=== PATIENT | female | born 1975 | race African-American/Black ===

== ENCOUNTER 2019-06-04 12:48 | Inpatient (IN) | payer OTHER ==
--- NOTE | 2019-06-04 13:28 | BHS.RME ---
Substance Use & Tx History - Substance Use History Alcohol Substance amount: 8 beers or 2 pints vodka Frequency of use: Daily Substance route: Oral Date of Last Use: 06/04/19 (9 am) Cocaine (Powder) Substance amount: 2 gram Frequency of use: Less than 3 times per week Substance route: Inhalation (ex: sniffing or snorting) Date of Last Use: 06/04/19 (9am) Nicotine Substance amount: 1/2 pack Frequency of use: Daily Substance route: Smoking Date of Last Use: 06/04/19 Physical/Psych/Mental Status - Behavior General Behavior: Increased activity (restlessness, agitation) Eye Contact: Normal - Cooperativeness Cooperativeness: Cooperative - Thinking Thought Processes: Tight, Logical, Goal Directed Thought content: Future oriented - Physical Health Problems Is patient presently having any pain?: No Does patient presently have any injuries (include location): No Does patient currently have a fever: No Is patient : No CIWA Nausea/Vomitin-No Nausea/No Vomiting Muscle Tremors: None Anxiety: 3 Agitation: 4-Moderately Restless Paroxysmal Sweats: No Perspiration Orientation: 2-Disoriented Date<2 days Tacttile Disturbances: 0-None Auditory Disturbances: 0-None Visual Disturbances: 0-None Headache: 0-None Present (not yet in withdrawals due to drinking early this morning 9AM) CIWA-Ar Total Score: 9
[2019-06-04 15:23] VITALS: BMI 27.7
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
[2019-06-04] MEDS ORDERED: ACETAMINOPHEN 325 MG TABLET (FP) PO PRN ×2 (15:47)
[2019-06-04] MEDS ORDERED: BISMUTH SUBSALICYLATE 524 MG/30 ML UD PO PRN (15:47)
[2019-06-04] MEDS ORDERED: MAGNESIUM HYDROX 2400MG/30ML ORAL SUSPENSION 30 ML CUP PO PRN (15:47)
[2019-06-04] MEDS ORDERED: ONDANSETRON *ODT* 4 MG TABLET SL ONE (15:47)
[2019-06-04] MEDS ORDERED: MENTHOL/PHENOL 1 EACH UD MM PRN (15:47)
[2019-06-04] MEDS ORDERED: NICOTINE POLACRILEX 2 MG GUM BUC PRN (15:47)
[2019-06-04] MEDS ORDERED: MAG HYDROX/AL HYDROX/SIMETH 30 ML UNIT-DOSE CUP PO PRN (15:47)
[2019-06-04] MEDS ORDERED: MAGNESIUM CITRATE 300 ML BOTTLE PO PRN (15:47)
[2019-06-04] MEDS ORDERED: chlordiazePOXIDE HCL 25 MG CAPSULE PO PRN (15:47)
--- NOTE | 2019-06-04 16:42 | PN ---
S Progress Note Note: Patient w/ hx uncontrolled HTN and hx cocaine use. Denies chest pain or SOB. No pedal edema. Discussed abnormal EKG reviewed w/ patient and association w/ current medical hx. Encouraged compliance w/ HTN meds and cessation of cocaine. Encouraged to obtain copy of EKG and labs and share w/ PCP upon discharge. Plan: Repeat EKG in 2 days.
[2019-06-04] MEDS: chlordiazePOXIDE HCL 25 MG CAPSULE PO SCH ×2 (17:10→22:08)
[2019-06-04] MEDS: NICOTINE 14 MG/24 HOURS TOPICAL PATCH TD SCH (17:22)
[2019-06-04] MEDS ORDERED: cloNIDine HCL 0.1 MG TABLET PO ONE (17:30)
[2019-06-04] MEDS: hydrOXYzine PAMOATE 25 MG CAPSULE (FP) PO SCH ×2 (19:45→22:08)
[2019-06-04] MEDS: MELATONIN 5 MG TABLETS PO SCH (22:08)
[2019-06-04] MEDS: THIAMINE HCL 100 MG TABLET (FP) PO SCH (22:08)
[2019-06-05] MEDS: hydrOXYzine PAMOATE 25 MG CAPSULE (FP) PO SCH ×5 (06:35→22:39)
[2019-06-05] MEDS: chlordiazePOXIDE HCL 25 MG CAPSULE PO SCH ×4 (06:35→22:39)
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
--- NOTE | 2019-06-05 09:31 | PN ---
S CIWA - CIWA Score Nausea/Vomitin-Mild Nausea/No Vomiting Muscle Tremors: 2 Anxiety: 4-Mod. Anxious/Guarded Agitation: 4-Moderately Restless Paroxysmal Sweats: 2 Orientation: 0-Oriented Tacttile Disturbances: 0-None Auditory Disturbances: 0-None Visual Disturbances: 0-None Headache: 0-None Present CIWA-Ar Total Score: 13 BHS Progress Note (SOAP) Subjective: 43 years old female admitted on 06/04/19 for alcohol withdrawal sx management treating with librium detox regiment long history of hypertension none adherence with antihypertensive medication can not remember the name of the medication amlodipine 10 mg po daily initiated clonidine 0.1mg po prn q6h for systolic bp above 140 fungul feet redness skin peeling moist no acute bleeding clotrimazole cream to feet report coughing at night with clear sputum clear lungs bilaterally rule out post nasal drip musinex po bid Objective: 06/05/19 09:40 Vital Signs Temperature 97.1 F L 06/05/19 06:27 Pulse Rate 72 06/05/19 06:27 Respiratory Rate 18 06/05/19 06:27 Blood Pressure 166/94 06/05/19 06:27 O2 Sat by Pulse Oximetry (%) 95 06/05/19 06:27 Laboratory Last Values POC Urine HCG, Qual Negative 06/04/19 15:13 06/05/19 09:40 lab pending bp elevation Assessment: 06/05/19 09:40 alcohol withdrawal Plan: librium regiment
--- NOTE | 2019-06-05 10:23 | EKG ---
Test Reason : Blood Pressure : / mmHG Vent. Rate : 073 BPM Atrial Rate : 073 BPM P-R Int : 148 ms QRS Dur : 076 ms QT Int : 416 ms P-R-T Axes : 064 029 -32 degrees QTc Int : 458 ms NORMAL SINUS RHYTHM POSSIBLE LEFT ATRIAL ENLARGEMENT LEFT VENTRICULAR HYPERTROPHY CANNOT RULE OUT SEPTAL INFARCT , AGE UNDETERMINED T WAVE ABNORMALITY, CONSIDER LATERAL ISCHEMIA ABNORMAL ECG NO PREVIOUS ECGS AVAILABLE Confirmed by TIM REED, JORDY ([id number]) on 06/05/2019 10:23:07 AM Referred By: ANNE Confirmed By:JORDY DUMONT MD
[2019-06-05 10:28] LABS: ALBUMIN 3.3 g/dl (3.4-5.0); BILIRUBIN,TOTAL 0.5 mg/dL (0.2-1); BLOOD UREA NITROGEN 13.1 mg/dL (7-18); CALCIUM 8.2 mg/dL (8.5-10.1); CREATININE 0.9 mg/dL (0.55-1.3); TOT PROT 6.5 g/dl (6.4-8.2)
[2019-06-05 10:35] LABS: HEMATOCRIT 33.7 % (32.4-45.2); HEMOGLOBIN 10.6 GM/dL (10.7-15.3); MCH 25.9 pg (25.7-33.7); MCHC 31.5 g/dl (32.0-36.0); MEAN CELL VOLUME 82.3 fl (80-96); MEAN PLT VOLUME 8.5 fl (7.5-11.1); PLATELET COUNT 320 K/MM3 (134-434); RBC 4.09 M/mm3 (3.60-5.2); RDW 15.6 % (11.6-15.6); WHITE BLOOD COUNT 4.9 K/mm3 (4.0-10.0)
[2019-06-05] MEDS: amLODIPine BESYLATE 10 MG TABLET (FP) PO SCH (10:36)
[2019-06-05] MEDS: PRENATAL VITAMINS W/ FOLIC ACID TABLET (FP) PO SCH (10:36)
[2019-06-05] MEDS: cloNIDine HCL 0.1 MG TABLET PO PRN (10:37)
[2019-06-05] MEDS: guaiFENesin 600 MG TABLET.ER (FP) PO SCH ×2 (10:38→22:39)
[2019-06-05] MEDS: CLOTRIMAZOLE 1% CREAM 15 GM TUBE TP SCH ×2 (10:38→23:21)
[2019-06-05] MEDS: METHOCARBAMOL 500 MG TABLET PO PRN (10:41)
[2019-06-05] MEDS: NICOTINE 14 MG/24 HOURS TOPICAL PATCH TD SCH (10:41)
[2019-06-05] MEDS: MELATONIN 5 MG TABLETS PO SCH (22:39)
[2019-06-05] MEDS: THIAMINE HCL 100 MG TABLET (FP) PO SCH (22:39)
[2019-06-05] MEDS: IBUPROFEN 400 MG TABLET (FP) PO PRN (22:41)
[2019-06-06] MEDS: hydrOXYzine PAMOATE 25 MG CAPSULE (FP) PO SCH ×5 (06:40→22:16)
[2019-06-06] MEDS: chlordiazePOXIDE HCL 25 MG CAPSULE PO SCH ×4 (06:40→22:15)
[2019-06-06] MEDS: guaiFENesin 600 MG TABLET.ER (FP) PO SCH ×2 (10:12→22:15)
[2019-06-06] MEDS: amLODIPine BESYLATE 10 MG TABLET (FP) PO SCH (10:12)
[2019-06-06] MEDS: PRENATAL VITAMINS W/ FOLIC ACID TABLET (FP) PO SCH (10:12)
[2019-06-06] MEDS: NICOTINE 14 MG/24 HOURS TOPICAL PATCH TD SCH (10:13)
[2019-06-06] MEDS: CLOTRIMAZOLE 1% CREAM 15 GM TUBE TP SCH ×2 (10:13→22:18)
[2019-06-06] MEDS: IBUPROFEN 400 MG TABLET (FP) PO PRN (15:26)
[2019-06-06] MEDS: cloNIDine HCL 0.1 MG TABLET PO PRN (15:27)
--- NOTE | 2019-06-06 15:45 | PN ---
S CIWA - CIWA Score Nausea/Vomitin-Mild Nausea/No Vomiting Muscle Tremors: 1-None Visible, but [place] Anxiety: 2 Agitation: 2 Paroxysmal Sweats: No Perspiration Orientation: 0-Oriented Tacttile Disturbances: 1-Very Mild Itch/Numbness Auditory Disturbances: 0-None Visual Disturbances: 0-None Headache: 1-Very Mild CIWA-Ar Total Score: 8 BHS Progress Note (SOAP) Subjective: alert,irritable,anxious,interrupted sleep, Objective: 06/06/19 15:44 withdrawal symptom Assessment: 06/06/19 15:44 withdrawal symptom no chest pain,no sob,no dizziness ekg no change comparing with 06/05/2019 Plan: continue detox librium regimen
[2019-06-06] MEDS: THIAMINE HCL 100 MG TABLET (FP) PO SCH (22:16)
[2019-06-06] MEDS: MELATONIN 5 MG TABLETS PO SCH (22:16)
[2019-06-07] MEDS ORDERED: chlordiazePOXIDE HCL 10 MG CAPSULE PO PRN
[2019-06-07] MEDS: chlordiazePOXIDE HCL 10 MG CAPSULE PO SCH ×4 (06:31→22:27)
[2019-06-07] MEDS: hydrOXYzine PAMOATE 25 MG CAPSULE (FP) PO SCH ×5 (06:31→22:28)
[2019-06-07] MEDS: CLOTRIMAZOLE 1% CREAM 15 GM TUBE TP SCH (10:07)
[2019-06-07] MEDS: guaiFENesin 600 MG TABLET.ER (FP) PO SCH ×2 (10:07→22:27)
[2019-06-07] MEDS: NICOTINE 14 MG/24 HOURS TOPICAL PATCH TD SCH (10:07)
[2019-06-07] MEDS: PRENATAL VITAMINS W/ FOLIC ACID TABLET (FP) PO SCH (10:08)
[2019-06-07] MEDS: amLODIPine BESYLATE 10 MG TABLET (FP) PO SCH (10:08)
[2019-06-07] MEDS: METHOCARBAMOL 500 MG TABLET PO PRN ×2 (10:09→18:19)
--- NOTE | 2019-06-07 17:07 | PN ---
S CIWA - CIWA Score Nausea/Vomitin-No Nausea/No Vomiting Muscle Tremors: None Anxiety: 2 Agitation: 4-Moderately Restless Paroxysmal Sweats: No Perspiration Orientation: 0-Oriented Tacttile Disturbances: 0-None Auditory Disturbances: 1-Very Mild Visual Disturbances: 0-None Headache: 0-None Present CIWA-Ar Total Score: 7 BHS Progress Note (SOAP) Subjective: Interrupted Sleep, Anxious, Restless. Objective: PATIENT A & O X 3, OBSERVED AMBULATING ON DETOX UNIT UNASSISTED. IN NO ACUTE DISTRESS. 06/07/19 17:08 Vital Signs Temperature 97.7 F 06/07/19 15:06 Pulse Rate 88 06/07/19 15:06 Respiratory Rate 18 06/07/19 15:06 Blood Pressure 130/71 06/07/19 15:06 O2 Sat by Pulse Oximetry (%) 98 06/07/19 15:08 Laboratory Tests 06/04/19 06/05/19 06/05/19 15:13 07:30 07:30 WBC 4.9 RBC 4.09 Hgb 10.6 L Hct 33.7 MCV 82.3 MCH 25.9 MCHC 31.5 L RDW 15.6 Plt Count 320 MPV 8.5 Sodium 141 Potassium 4.0 Chloride 110 H Carbon Dioxide 26 Anion Gap 5 L BUN 13.1 Creatinine 0.9 Est GFR (CKD-EPI)AfAm 91.40 Est GFR (CKD-EPI)NonAf 78.86 Random Glucose 105 Calcium 8.2 L Total Bilirubin 0.5 AST 19 ALT 45 Alkaline Phosphatase 45 Total Protein 6.5 Albumin 3.3 L POC Urine HCG, Qual Negative RPR Titer 06/05/19 07:30 WBC RBC Hgb Hct MCV MCH MCHC RDW Plt Count MPV Sodium Potassium Chloride Carbon Dioxide Anion Gap BUN Creatinine Est GFR (CKD-EPI)AfAm Est GFR (CKD-EPI)NonAf Random Glucose Calcium Total Bilirubin AST ALT Alkaline Phosphatase Total Protein Albumin POC Urine HCG, Qual RPR Titer Nonreactive LABS NOTED. Assessment: 06/07/19 17:09 WITHDRAWAL SYMPTOMS. Plan: CONTINUE DETOX.
[2019-06-07] MEDS: THIAMINE HCL 100 MG TABLET (FP) PO SCH (22:27)
[2019-06-07] MEDS: MELATONIN 5 MG TABLETS PO SCH (22:28)
[2019-06-07] MEDS: IBUPROFEN 400 MG TABLET (FP) PO PRN (22:29)
[2019-06-07] MEDS: cloNIDine HCL 0.1 MG TABLET PO PRN (22:32)
[2019-06-08] MEDS: CLOTRIMAZOLE 1% CREAM 15 GM TUBE TP SCH ×3 (00:14→22:29)
[2019-06-08] MEDS: chlordiazePOXIDE HCL 10 MG CAPSULE PO SCH ×2 (05:30→17:43)
[2019-06-08] MEDS: hydrOXYzine PAMOATE 25 MG CAPSULE (FP) PO SCH ×5 (05:30→22:29)
[2019-06-08] MEDS: amLODIPine BESYLATE 10 MG TABLET (FP) PO SCH (11:19)
[2019-06-08] MEDS: METHOCARBAMOL 500 MG TABLET PO PRN ×2 (11:19→22:28)
[2019-06-08] MEDS: PRENATAL VITAMINS W/ FOLIC ACID TABLET (FP) PO SCH (11:19)
[2019-06-08] MEDS: NICOTINE 14 MG/24 HOURS TOPICAL PATCH TD SCH (11:20)
[2019-06-08] MEDS: guaiFENesin 600 MG TABLET.ER (FP) PO SCH ×2 (11:20→22:28)
--- NOTE | 2019-06-08 12:31 | PN ---
[facility] CIWA - CIWA Score Nausea/Vomitin-No Nausea/No Vomiting Muscle Tremors: None Anxiety: 2 Agitation: 0-Normal Activity Paroxysmal Sweats: 1-Minimal Palms Moist Orientation: 0-Oriented Tacttile Disturbances: 0-None Auditory Disturbances: 0-None Visual Disturbances: 0-None Headache: 0-None Present CIWA-Ar Total Score: 3 BHS Progress Note (SOAP) Subjective: c/o mild withdrawal symptoms. Objective: 06/08/19 12:29 Vital Signs 06/08/19 06/08/19 05:22 09:26 Temperature 97.9 F 98.3 F Pulse Rate 87 83 Respiratory 20 18 Rate Blood Pressure 141/88 140/68 O2 Sat by Pulse 98 Oximetry (%) Laboratory Last Values WBC 4.9 K/mm3 (4.0-10.0) 06/05/19 07:30 RBC 4.09 M/mm3 (3.60-5.2) 06/05/19 07:30 Hgb 10.6 GM/dL (10.7-15.3) L 06/05/19 07:30 Hct 33.7 % (32.4-45.2) 06/05/19 07:30 MCV 82.3 fl (80-96) 06/05/19 07:30 MCH 25.9 pg (25.7-33.7) 06/05/19 07:30 MCHC 31.5 g/dl (32.0-36.0) L 06/05/19 07:30 RDW 15.6 % (11.6-15.6) 06/05/19 07:30 Plt Count 320 K/MM3 (134-434) 06/05/19 07:30 MPV 8.5 fl (7.5-11.1) 06/05/19 07:30 Sodium 141 mmol/L (136-145) 06/05/19 07:30 Potassium 4.0 mmol/L (3.5-5.1) 06/05/19 07:30 Chloride 110 mmol/L (98-107) H 06/05/19 07:30 Carbon Dioxide 26 mmol/L (21-32) 06/05/19 07:30 Anion Gap 5 MMOL/L (8-16) L 06/05/19 07:30 BUN 13.1 mg/dL (7-18) 06/05/19 07:30 Creatinine 0.9 mg/dL (0.55-1.3) 06/05/19 07:30 Est GFR (CKD-EPI)AfAm 91.40 06/05/19 07:30 Est GFR (CKD-EPI)NonAf 78.86 06/05/19 07:30 Random Glucose 105 mg/dL (74-106) 06/05/19 07:30 Calcium 8.2 mg/dL (8.5-10.1) L 06/05/19 07:30 Total Bilirubin 0.5 mg/dL (0.2-1) 06/05/19 07:30 AST 19 U/L (15-37) 06/05/19 07:30 ALT 45 U/L (13-61) 06/05/19 07:30 Alkaline Phosphatase 45 U/L (45-117) 06/05/19 07:30 Total Protein 6.5 g/dl (6.4-8.2) 06/05/19 07:30 Albumin 3.3 g/dl (3.4-5.0) L 06/05/19 07:30 POC Urine HCG, Qual Negative 06/04/19 15:13 RPR Titer Nonreactive (NONREACTIVE) 06/05/19 07:30 Labs noted. Assessment: 06/08/19 12:30 AOX3, in no acute respiratory distress. Full ROM, ambulating in the unit. Mild Withdrawal symptoms. For d/c tomorrow. Plan: continue detox. D/C in AM.
[2019-06-08] MEDS: THIAMINE HCL 100 MG TABLET (FP) PO SCH (22:28)
[2019-06-08] MEDS: MELATONIN 5 MG TABLETS PO SCH (22:28)
[2019-06-08] MEDS: cloNIDine HCL 0.1 MG TABLET PO PRN (22:31)
[2019-06-09] MEDS ORDERED: chlordiazePOXIDE HCL 10 MG CAPSULE PO ONE (05:00)
[2019-06-09] MEDS: hydrOXYzine PAMOATE 25 MG CAPSULE (FP) PO SCH ×2 (06:00→10:54)
--- NOTE | 2019-06-09 09:02 | DS ---
[facility] Detox Discharge Summary Admission Date: 06/04/19 Discharge Date: 06/09/19 - History Present History: Alcohol Dependence, Cocaine Dependence - Physical Exam Results Vital Signs: Vital Signs Temperature 97.7 F 06/09/19 06:15 Pulse Rate 87 06/09/19 06:15 Respiratory Rate 18 06/09/19 06:15 Blood Pressure 147/89 06/09/19 06:15 O2 Sat by Pulse Oximetry (%) 98 06/09/19 06:15 Pertinent Admission Physical Exam Findings: Vital Signs Temperature 97.7 F 06/09/19 06:15 Pulse Rate 87 06/09/19 06:15 Respiratory Rate 18 06/09/19 06:15 Blood Pressure 147/89 06/09/19 06:15 O2 Sat by Pulse Oximetry (%) 98 06/09/19 06:15 Laboratory Tests 06/04/19 06/05/19 06/05/19 15:13 07:30 07:30 WBC 4.9 RBC 4.09 Hgb 10.6 L Hct 33.7 MCV 82.3 MCH 25.9 MCHC 31.5 L RDW 15.6 Plt Count 320 MPV 8.5 Sodium 141 Potassium 4.0 Chloride 110 H Carbon Dioxide 26 Anion Gap 5 L BUN 13.1 Creatinine 0.9 Est GFR (CKD-EPI)AfAm 91.40 Est GFR (CKD-EPI)NonAf 78.86 Random Glucose 105 Calcium 8.2 L Total Bilirubin 0.5 AST 19 ALT 45 Alkaline Phosphatase 45 Total Protein 6.5 Albumin 3.3 L POC Urine HCG, Qual Negative RPR Titer 06/05/19 07:30 WBC RBC Hgb Hct MCV MCH MCHC RDW Plt Count MPV Sodium Potassium Chloride Carbon Dioxide Anion Gap BUN Creatinine Est GFR (CKD-EPI)AfAm Est GFR (CKD-EPI)NonAf Random Glucose Calcium Total Bilirubin AST ALT Alkaline Phosphatase Total Protein Albumin POC Urine HCG, Qual RPR Titer Nonreactive aaox3 ambulating no acute distress lungs CTA - Treatment Hospital Course: Detox Protocol Followed, Detoxed Safely, Responded well, Discharged Condition Good, Rehab Referral Accepted - Medication Discharge Medications: Ambulatory Orders NK [No Known Home Medication] 06/04/19 - Diagnosis (1) Alcohol dependence with withdrawal, uncomplicated Current Visit: Yes Status: Chronic (2) Cocaine dependence Current Visit: Yes Status: Chronic Qualifiers: Substance use status: uncomplicated Qualified Code(s): F14.20 - Cocaine dependence, uncomplicated (3) Substance induced mood disorder Current Visit: Yes Status: Acute (4) Substance-induced sleep disorder Current Visit: Yes Status: Acute (5) Bipolar 1 disorder Current Visit: Yes Status: Chronic (6) Bronchial asthma Current Visit: Yes Status: Chronic (7) HTN (hypertension) Current Visit: Yes Status: Chronic (8) MDD (major depressive disorder), recurrent episode, moderate Current Visit: Yes Status: Chronic (9) Nicotine dependence Current Visit: Yes Status: Chronic Qualifiers: Nicotine product type: cigarettes Substance use status: uncomplicated Qualified Code(s): F17.210 - Nicotine dependence, cigarettes, uncomplicated - AMA Did Patient Leave Against Medical Advice: No
[2019-06-09 10:37] VITALS: BP 158/93; PULSE 98; TEMP 98.3
[2019-06-09] MEDS: guaiFENesin 600 MG TABLET.ER (FP) PO SCH (10:54)
[2019-06-09] MEDS: PRENATAL VITAMINS W/ FOLIC ACID TABLET (FP) PO SCH (10:54)
[2019-06-09] MEDS: CLOTRIMAZOLE 1% CREAM 15 GM TUBE TP SCH (10:54)
[2019-06-09] MEDS: amLODIPine BESYLATE 10 MG TABLET (FP) PO SCH (10:54)
[2019-06-09] MEDS: NICOTINE 14 MG/24 HOURS TOPICAL PATCH TD SCH (10:55)
--- NOTE | 2019-06-14 18:22 | EKG ---
Test Reason : Blood Pressure : / mmHG Vent. Rate : 090 BPM Atrial Rate : 090 BPM P-R Int : 148 ms QRS Dur : 078 ms QT Int : 374 ms P-R-T Axes : 068 035 -87 degrees QTc Int : 457 ms NORMAL SINUS RHYTHM SEPTAL INFARCT (CITED ON OR BEFORE 04-JUN-2019) T WAVE ABNORMALITY, CONSIDER INFEROLATERAL ISCHEMIA ABNORMAL ECG WHEN COMPARED WITH ECG OF 04-JUN-2019 15:23, NO SIGNIFICANT CHANGE WAS FOUND Confirmed by EYAD SUTHERLAND MD ([id number]) on 06/14/2019 6:21:47 PM Referred By: Soheila Confirmed By:EYAD SUTHERLAND MD
== END 2019-06-09 12:35 | disposition home or self-care (01) | DRG 774 ==
LOC: YASAS 12:48 → Y3N 15:37 → Y6N 06-05 19:19
PROVIDERS: ADMIT Allergy & Immunology; ATTEND Allergy & Immunology
PROC: HZ2ZZZZ Detoxification Services for Substance Abuse Treatment (ICD-10-PCS; principal; 2019-06-04)
DX: F10.230 Alcohol dependence with withdrawal, uncomplicated (principal); F14.20 Cocaine dependence, uncomplicated; F17.210 Nicotine dependence, cigarettes, uncomplicated; F19.282 Other psychoactive substance dependence with psychoactive substance-induced sleep disorder; F19.24 Other psychoactive substance dependence with psychoactive substance-induced mood disorder; F31.9 Bipolar disorder, unspecified; I10 Essential (primary) hypertension; J45.909 Unspecified asthma, uncomplicated; B35.3 Tinea pedis; Z62.810 Personal history of physical and sexual abuse in childhood; Z91.410 Personal history of adult physical and sexual abuse
CPT/HCPCS: 36415; 80053; 81025; 85027; 86593; 93005; 93010; J0735